=== PATIENT | male | born 1995 | race Caucasian/White ===

== ENCOUNTER 2016-11-26 11:23 | Emergency (ER) | payer OTHER ==
[~2016-11-26] VITALS: Ht 175.3 cm; Wt 74.5 kg
[~2016-11-26 11:23] MED LIST: CEPH500C PO; IBUP400T22 PO; SLF10OP5 LEFT EYE
[2016-11-26 11:25] VITALS: Ht 175.3 cm; Wt 74.5 kg
--- NOTE | 2016-11-26 12:33 | ERD ---
ER Documentation Chief Complaint Date/Time DATE: 11/26/16 TIME: 12:30 Chief Complaint numbness b/l hands x 2 weeks on and off HPI This patient is a 20-year-old male with no significant medical history presenting to the emergency department for numbness to his bilateral hands ongoing intimately for the past 2 weeks. He states that this symptom lasts for about 30 minutes and then resolves spontaneously. He always notices the symptoms when he is stressed out and studying for his classes. He denies any chest pain, shortness of breath, nausea, vomiting, diarrhea, syncope, dizziness , or other symptoms. Symptoms have currently resolved. ROS All systems reviewed and are negative except as per history of present illness. Medications Home Meds Active Scripts Sulfacetamide Sodium* (Bleph-10*) 10%-5 Ml Opht Drops, 1 DROP LEFT EYE Q3H, #5 ML Prov:MARY ANN WHITFIELD 12/22/14 Reported Medications Ibuprofen* (Ibuprofen*) 400 Mg Tablet, 400 MG PO Q8 02/03/11 Cephalexin* (Cephalexin*) 500 Mg Capsule, 500 MG PO TID 02/03/11 Allergies Allergies: Coded Allergies: No Known Drug Allergies (Verified Allergy, Unknown, 11/26/16) PMhx/Soc History of Surgery: Yes (PYLOROMYOTOMY AT AGE 1 MONTH OLD AT [facility]) Anesthesia Reaction: No Hx Neurological Disorder: No Hx Respiratory Disorders: No Hx Cardiac Disorders: No Hx Psychiatric Problems: No Hx Miscellaneous Medical Probl: No Hx Alcohol Use: No Hx Substance Use: No Hx Tobacco Use: No Smoking Status: Never smoker Physical Exam Vitals Vital Signs Date Time Temp Pulse Resp B/P Pulse Ox O2 Delivery O2 Flow Rate FiO2 11/26/16 11:25 97.5 64 18 130/79 98 Physical Exam Const: Nontoxic, well-appearing male resting in no acute distress. Head: Atraumatic Eyes: Normal Conjunctiva ENT: Normal External Ears, Nose and Mouth. Neck: Full range of motion..~ No meningismus. Resp: Clear to auscultation bilaterally Cardio: Regular rate and rhythm, no murmurs Abd: Soft, non tender, non distended. Normal bowel sounds Skin: No petechiae or rashes Back: No midline or flank tenderness Ext: No cyanosis, or edema Neur: Awake and alert Psych: Normal Mood and Affect Procedures/MDM 20-year-old male presents to the emergency department secondary to complaints of intermittent bilateral hand numbness. Physical examination is unremarkable. EKG: Interpreted by ED physician Rate/Rhythm: Sinus bradycardia with a rate of 57 bpm QRS, ST, T-waves: No changes consistent w/ acute ischemia Impression: No evidence of ischemia or arrhythmia I believe the patient's history and clinical examination is consistent with anxiety reaction secondary to increased stress in the patient's life. I recommended stress reduction techniques at home. I do not believe that the patient would benefit from benzodiazepine prescription at this time as this is a acute problem and he has not tried other alternatives to stress reduction first. The patient was advised to have close follow-up with the primary care physician. Strict ER return precautions were discussed. The patient agrees with the discharge plan and diagnosis. I have low suspicion for cardiac or pulmonary pathology Departure Diagnosis: Primary Impression: Anxiety reaction Condition: Fair Patient Instructions: Your Body's Response to Anxiety Additional Instructions: Follow up with your PCP within the next 1-3 days for a repeat evaluation. Return the the emergency department immediately if symptoms worsen or change. If you have any questions regarding medications, ask your pharmacist or us before you leave. If any adverse reactions, occur while taking your medications , discontinue the treatment and return to the emergency department immediately. If any new or worsening symptoms, uncontrolled fevers, or other unexplained symptoms occur, return to the emergency department immediately. Take your medications as directed, and complete the entire course of treatment. HERMINIA FOWLER PA-C Nov 26, 2016 12:33
== END 2016-11-26 12:20 | disposition home or self-care (01) ==
LOC: FTE 11:23
DX: F41.9 Anxiety disorder, unspecified (principal); R94.31 Abnormal electrocardiogram [ECG] [EKG]
CPT/HCPCS: 93005